=== PATIENT | male | born 1980 | race Caucasian/White ===

== ENCOUNTER 2016-12-01 22:39 | Emergency (ER) | payer MEDICAID ==
[~2016-12-01] VITALS: Ht 165.1 cm; Wt 86.2 kg
[2016-12-01 22:46] VITALS: BP 126/75
--- NOTE | 2016-12-02 00:56 | NUR ---
PATIENT LEFT WITHOUT BEING SEEN BY DR. REDD. NO FURTHER CARE PROVIDED FOR PATIENT.
== END 2016-12-02 00:56 | disposition left against medical advice (07) ==
LOC: MED 22:39
DX: R05 Cough (principal); Z53.21 Procedure and treatment not carried out due to patient leaving prior to being seen by health care provider